=== PATIENT | male | born 1975 | race Two or more races ===

== ENCOUNTER 2024-01-13 08:14 | Outpatient (CLI) | payer OTHER ==
[2024-01-13] MEDS ORDERED: Iopamidol 370 76% 100 ML VIAL ONE (13:34)
== END 2024-01-13 08:15 | disposition home or self-care (01) ==
LOC: CT 08:14
PROVIDERS: ATTEND Registered Nurse
DX: T18.9XXA Foreign body of alimentary tract, part unspecified, initial encounter (principal)
CPT/HCPCS: 71270; 74178